=== PATIENT | male | born 1990 | race Hispanic/Latino ===

== ENCOUNTER 2023-09-01 10:17 | Outpatient (CLI) | payer OTHER | END 2023-09-01 10:18 | disposition home or self-care (01) | LOC: SCSCT 10:17 | PROVIDERS: ATTEND Physician Assistant | DX: H90.42 Sensorineural hearing loss, unilateral, left ear, with unrestricted hearing on the contralateral side (principal); H74.8X2 Other specified disorders of left middle ear and mastoid | CPT/HCPCS: 70480 ==